=== PATIENT | female | born 1975 ===

== ENCOUNTER 2018-12-20 15:37 | Observation (INO) | payer OTHER ==
[~2018-12-20] VITALS: Ht 157.5 cm; Wt 49.9 kg
[2018-12-20 16:31] LABS: BASOPHILS ABSOLUTE AUTO 0.08 K/mm3 (0.00-0.23); BASOPHILS PERCENT AUTO 1 % (0-2); EOSINOPHILS ABSOLUTE AUTO 0.08 K/mm3 (0.00-0.68); EOSINOPHILS PERCENT AUTO 1 % (0-6); Hematocrit 43.9 % (33.0-51.0); IMMATURE GRAN ABSOLUTE AUTO 0.02 K/mm3 (0.00-0.10); IMMATURE GRAN PERCENT AUTO 0 % (0-1); LYMPHOCYTES ABSOLUTE AUTO 3.55 K/mm3 (0.84-5.20); LYMPHOCYTES PERCENT AUTO 36 % (21-46); MONOCYTES ABSOLUTE AUTO 0.66 K/mm3 (0.16-1.47); MONOCYTES PERCENT AUTO 7 % (4-13); Mean Corpuscular HGB Conc 34.2 g/dL (31.5-36.5); Mean Corpuscular Volume 94 fL (80-100); NEUTROPHILS ABSOLUTE AUTO 5.53 K/mm3 (1.96-9.15); NEUTROPHILS PERCENT AUTO 56 % (41-73); Platelet Count 436 K/mm3 (150-400); RDW Coefficient Variation 12.4 % (11.7-14.2); RDW Standard Deviation 42.9 fL (35.1-46.3); Red Blood Cell Count 4.69 M/mm3 (3.80-5.20); White Blood Cell Count 9.92 K/mm3 (4.00-11.30)
[2018-12-20 16:49] LABS: Alanine Aminotransfer (ALT/SGP 32 U/L (12-78); Albumin, Blood 4.2 g/dL (3.4-5.0); Albumin/Globulin Ratio 0.8 (0.8-1.8); Alk Phos 92 U/L (50-136); Anion Gap 8 mmol/L (6-16); Aspartate Aminotrans (AST/SGOT 27 U/L (12-37); Bilirubin, Total 0.6 mg/dL (0.1-1.0); Blood Urea Nitrogen 11 mg/dL (8-24); Bun/Creatinine Ratio 14.6 (12.0-20.0); CO2, Blood 28 mmol/L (21-32); Calcium, Blood 9.6 mg/dL (8.5-10.1); Chloride, Blood 103 mmol/L (98-108); Creatinine, Blood 0.75 mg/dL (0.40-1.00); Globulin, Blood 5.1 g/dL (2.2-4.0); Glomerular Filtration Rate >60 (60-); Glucose, Blood 82 mg/dL (70-99); Potassium, Blood 2.9 mmol/L (3.5-5.5); Sodium, Blood 139 mmol/L (136-145); Total Protein, Blood 9.3 g/dL (6.4-8.2)
[2018-12-20 16:53] LABS: Ethanol (Alcohol), Blood, Med <3 mg/dL; Salicylate <1.7 mg/dL (2.8-20.0)
[2018-12-20 16:58] LABS: Acetaminophen, Random <2.0 ug/mL (10.0-30.0)
[2018-12-20 17:39] LABS: Source, Urine Clean Catch
[2018-12-20 17:44] LABS: Bilirubin, Urine Neg (Neg); Blood, Urine 2+ (Neg); Glucose Qualitative, Urine Neg (Neg); Ketones, Urine 3+ (Neg); Leukocyte Esterase, Urine 2+ (Neg); Nitrite, Urine Pos (Neg); Protein, Urine 2+ (Neg); Urobilinogen, Urine 1+ (Normal)
[2018-12-20 17:54] LABS: Appearance, Urine Cloudy (Clear); Color, Urine Yellow (P-Yellow)
[2018-12-20 17:55] LABS: White Blood Cells, Urine 50-100 /hpf (0-5)
[2018-12-20 17:56] LABS: Bacteria Many /hpf; Red Blood Cells, Urine 0-2 /hpf (0-2); Squamous Epithelial Cells Few /hpf (Few)
[2018-12-20 17:58] LABS: U Amphetamine Screen DETECTED; U Barbituate Screen Not Detected; U Benzodiazapine Screen Not Detected; U Buprenorphine Screen Not Detected; U Cannabinoids Screen DETECTED; U Cocaine Screen Not Detected; U Methadone Screen Not Detected; U Methamphetamine Screen Not Detected; U Opiates Screen Not Detected; U Oxycodone Screen Not Detected; U Phencyclidine Screen Not Detected; U Propoxyphene Screen Not Detected
--- NOTE | 2018-12-20 22:36 | NUR ---
PT ADMITTED FROM ED AT APPROX 2130. PT SLEEPING UPON ARRIVAL. ALERT WHEN WOKEN UP, HOWEVER LETHARGIC. VS WNL. IV ACCESS ESTABLISHED. POTASSIUM NOW INFUSING. UNABLE TO OBTAIN MEDICAL HISTORY AT THIS TIME.
[2018-12-21 05:25] LABS: Anion Gap 9 mmol/L (6-16); Blood Urea Nitrogen 14 mg/dL (8-24); Bun/Creatinine Ratio 18.3 (12.0-20.0); CO2, Blood 24 mmol/L (21-32); Calcium, Blood 8.5 mg/dL (8.5-10.1); Chloride, Blood 107 mmol/L (98-108); Creatinine, Blood 0.76 mg/dL (0.40-1.00); Glomerular Filtration Rate >60 (60-); Glucose, Blood 88 mg/dL (70-99); Potassium, Blood 3.7 mmol/L (3.5-5.5); Sodium, Blood 140 mmol/L (136-145)
--- NOTE | 2018-12-21 05:55 | NUR ---
PT REMAINS SLEEPING. ATTEMPTED TO ASK PT ABOUT MEDICAL HX- PT RESPONDING TO SOME QUESTIONS BUT THEN WILL FALL BACK ASLEEP. WHEN ASKED ABOUT MENTAL HEALTH, PT REPORTS SHE HAS A "BROKENHEART". REPORTS THAT SHE MISSES HER CHILDREN WHO ARE LIVING IN [facility]. UNABLE TO OBTAIN ANYMORE INFORTMATION PT FELL ASLEEP. 2/2 BAGS OF POTASSIUM GIVEN. K+ STABLE THIS MORNING AT 3.7.
--- NOTE | 2018-12-21 16:28 | NUR ---
SHIFT SUMMARY PATIENT HAS SLEPT MUCH OF THE SHIFT. WHEN ASKED ABOUT HER LIVING SITUATION SHE STATED SHE LIVED WITH A BOYFRIEND THEN STATED SHE LIVED AT THE [facility], THEN STATED SHE LIVED IN [place]. SHE SPOKE VERY QUIETLY AND MUMBLED STATEMENTS THAT I DID NOT UNDERSTAND. SHE IS ORIENTED TO SELF. UNAWARE OF WHERE SHE WAS. WOKE AND FILLED OUT MEAL CARD. GOTTEN UP TO GO TO THE BATHROOM A COUPLE TIMES. NO OTHER ISSUES NOTED.
--- NOTE | 2018-12-21 16:43 | NUR ---
Marie was alone in room. She is soft-spoken and appears mentally muddled. She is from [place]. Her BF lives in [place]. She cannot tell me how she ended up in [place]. [place] She tells me she has been texting her BF, but he is not responding. She does not want to be with family in [place]. She would like a safe place to live. She smiles easily and denies pain/fear. She was sleepy, so visit kept short. Marie appeared to enjoy loving presence and encouragement. I will remain available.
--- NOTE | 2018-12-22 06:57 | NUR ---
compliant with care, rm air, saline locked, will do bsr with returning nurse
--- NOTE | 2018-12-22 16:48 | NUR ---
SHIFT SUMMARY PATIENT HAS HAD NO ACUTE CHANGES. MUMBLES NON SENSICAL STATEMENTS THEN IS ABLE TO MAKE NEEDS KNOWN. REQUESTED TO PUT CLOTHES IN WASHING MACHINE. SITTING IN ROOM WATCHING TV. HAS ORGANZIED BELONGINGS FREQUENTLY. SHOWERED.
--- NOTE | 2018-12-23 06:58 | NUR ---
cooperative with care, family in room all night, brought in stuff, much activity, call light in reach, saline locked, room air, no change in loc, bsr shared with returning day shift
[2018-12-23] MEDS ORDERED: QUET25 PO (15:31)
--- NOTE | 2018-12-23 16:11 | NUR ---
DISCHARGE SUMMARY PATIENT DISCHARGED WITH BOYFRIEND. IV REMOVED. EDUCATION REGARDING SUBSTANCE ABUSE GIVEN. CALLED IN RX TO PHARMACY. NITROGLYCERIN SEPARATOR OPERATOR TO FOLLOW UP WITH PATIENT REGARDING MEDICATIONS. PATIENT VERBALIZING WANTING TO GET CLOSER TO HER CHILDREN. AMBULATED SELF OUT OF FACILITY. NO ACUTE ISSUES NOTED.
== END 2018-12-23 15:42 | disposition home or self-care (01) ==
LOC: ER 15:37 → MEDS 15:38
PROVIDERS: Physician Assistant; ADMIT Family Medicine
DX: F15.159 Other stimulant abuse with stimulant-induced psychotic disorder, unspecified (principal); F15.129 Other stimulant abuse with intoxication, unspecified; G92 Toxic encephalopathy; E87.6 Hypokalemia; D47.3 Essential (hemorrhagic) thrombocythemia
CPT/HCPCS: 36415; 80048; 80053; 81001; 81025; 83605; 85025; 87077; 87086; 87186; 96365; 96366; 96367; 96372-59; 96376; 99285-25; A9270-GY; G0378; G0480; J0696; J1200; J1630; J3480; J7050

== ENCOUNTER 2020-09-15 03:45 | Emergency (ER) | payer OTHER ==
[~2020-09-15] VITALS: Ht 152.4 cm; Wt 49.9 kg
[~2020-09-15 03:45] MED LIST: QUET25 PO
[2020-09-15 04:24] LABS: BASOPHILS ABSOLUTE AUTO 0.11 K/mm3 (0.00-0.23); BASOPHILS PERCENT AUTO 1 % (0-2); EOSINOPHILS ABSOLUTE AUTO 0.06 K/mm3 (0.00-0.68); EOSINOPHILS PERCENT AUTO 0 % (0-6); Hematocrit 39.9 % (33.0-51.0); Hemoglobin 13.6 g/dL (11.5-16.0); IMMATURE GRAN ABSOLUTE AUTO 0.08 K/mm3 (0.00-0.10); IMMATURE GRAN PERCENT AUTO 0 % (0-1); LYMPHOCYTES ABSOLUTE AUTO 2.08 K/mm3 (0.84-5.20); LYMPHOCYTES PERCENT AUTO 11 % (21-46); MONOCYTES ABSOLUTE AUTO 0.87 K/mm3 (0.16-1.47); MONOCYTES PERCENT AUTO 5 % (4-13); Mean Corpuscular HGB 32.1 pg (26.0-34.0); Mean Corpuscular HGB Conc 34.1 g/dL (31.5-36.5); Mean Corpuscular Volume 94 fL (80-100); Mean Platelet Volume 9.8 fL (9.1-12.4); NEUTROPHILS ABSOLUTE AUTO 15.94 K/mm3 (1.96-9.15); NEUTROPHILS PERCENT AUTO 83 % (41-73); Platelet Count 380 K/mm3 (150-400); RDW Coefficient Variation 12.3 % (11.7-14.2); RDW Standard Deviation 42.9 fL (35.1-46.3); Red Blood Cell Count 4.24 M/mm3 (3.80-5.20); White Blood Cell Count 19.14 K/mm3 (4.00-11.30)
[2020-09-15 04:37] LABS: Source, Urine Clean Catch
[2020-09-15 04:39] LABS: Bilirubin, Urine Neg (Neg); Blood, Urine Neg (Neg); Glucose Qualitative, Urine Neg (Neg); Ketones, Urine Neg (Neg); Leukocyte Esterase, Urine Neg (Neg); Nitrite, Urine Neg (Neg); Protein, Urine 1+ (Neg); Specific Gravity, Urine 1.015 (1.003-1.022); Urobilinogen, Urine NORM (Normal)
[2020-09-15 04:40] LABS: Alanine Aminotransfer (ALT/SGP 24 U/L (12-78); Albumin/Globulin Ratio 0.8 (0.8-1.8); Alk Phos 72 U/L (50-136); Anion Gap 5 mmol/L (6-16); Aspartate Aminotrans (AST/SGOT 32 U/L (12-37); Bilirubin, Total 0.3 mg/dL (0.1-1.0); Blood Urea Nitrogen 11 mg/dL (8-24); Bun/Creatinine Ratio 13.7 (12.0-20.0); CO2, Blood 28 mmol/L (21-32); Calcium, Blood 8.9 mg/dL (8.5-10.1); Chloride, Blood 102 mmol/L (98-108); Globulin, Blood 4.9 g/dL (2.2-4.0); Glomerular Filtration Rate >60 (60-); Glucose, Blood 97 mg/dL (70-99); Potassium, Blood 3.9 mmol/L (3.5-5.5); Salicylate 2.1 mg/dL (2.8-20.0); Sodium, Blood 135 mmol/L (136-145); Total Protein, Blood 8.9 g/dL (6.4-8.2)
[2020-09-15 04:52] LABS: U Amphetamine Screen Not Detected; U Barbituate Screen Not Detected; U Benzodiazapine Screen Not Detected; U Buprenorphine Screen Not Detected; U Cannabinoids Screen DETECTED; U Cocaine Screen Not Detected; U Methadone Screen Not Detected; U Methamphetamine Screen DETECTED; U Opiates Screen Not Detected; U Oxycodone Screen Not Detected; U Phencyclidine Screen Not Detected; U Propoxyphene Screen Not Detected
[2020-09-15 04:56] LABS: Appearance, Urine Hazy (Clear); Color, Urine Yellow (P-Yellow)
[2020-09-15 04:57] LABS: Amorphous Heavy (0-Heavy); Bacteria Few /hpf; Red Blood Cells, Urine Not Seen /hpf (0-2); Squamous Epithelial Cells Few /hpf (Few); White Blood Cells, Urine Not Seen /hpf (0-5)
[2020-09-15 05:07] LABS: Acetaminophen, Random <2.0 ug/mL (10.0-30.0); Ethanol (Alcohol), Blood, Med <3 mg/dL
== END 2020-09-15 05:48 | disposition home or self-care (01) ==
LOC: ER 03:45
PROVIDERS: Emergency Medicine
DX: T65.891A Toxic effect of other specified substances, accidental (unintentional), initial encounter (principal); F15.10 Other stimulant abuse, uncomplicated; F17.200 Nicotine dependence, unspecified, uncomplicated
CPT/HCPCS: 71046; 80053; 81001; 81025; 85025; 99284-25; G0480